=== PATIENT | male | born 2000 | race Caucasian/White ===

== ENCOUNTER 2024-12-19 02:48 | Emergency (ER) | payer MEDICAID ==
[~2024-12-19] VITALS: Ht 175.3 cm; Wt 73.0 kg
[2024-12-19 02:53] VITALS: O2SAT 99
[2024-12-19 04:44] LABS: BASOPHILS % 0.6 % (0.0-2.0); EOSINOPHILS % 6.4 % (0.0-5.0); HEMATOCRIT. 40.3 % (42.0-52.0); HEMOGLOBIN. 13.5 g/dL (14.0-18.0); LYMPHOCYTES % 17.5 % (20.0-50.0); MEAN PLATELET VOLUME 8.1 fl (7.4-10.4); MONOCYTES % 8.4 % (2.0-8.0); NEUTROPHILS % 67.1 % (40.0-76.0); PLATELET 295 x1000/uL (130-400); RED BLOOD CELL COUNT 4.94 mill/uL (4.7-6.1); RED CELL DISTRIBUTION WIDTH 14.0 % (11.6-14.6)
[2024-12-19 04:57] LABS: CREATININE 0.9 mg/dL (0.6-1.3); UREA NITROGEN BLOOD 15 mg/dL (9-23)
[2024-12-19 04:59] LABS: ASPARTATE AMINOTRANSFERASE 735 IU/L (<34); BILIRUBIN DIRECT 1.0 mg/dL (<=3.0)
[2024-12-19 05:00] LABS: BILIRUBIN TOTAL 1.9 mg/dL (0.1-1.0); PROTEIN TOTAL 7.9 g/dL (6.0-8.3)
[2024-12-19 05:34] LABS: CLARITY URINE CLEAR (CLEAR); COLOR URINE DARK YELLOW (YELLOW); GLUCOSE URINE NEGATIVE (NEGATIVE); KETONES URINE NEGATIVE (NEGATIVE); LEUKOCYTE ESTERASE URINE TRACE (NEGATIVE); NITRITE URINE NEGATIVE (NEGATIVE); OCCULT BLOOD URINE NEGATIVE (NEGATIVE); PH URINE 5.5 (4.5-8.0); PROTEIN URINE TRACE (NEGATIVE); SPECIFIC GRAVITY URINE 1.037 (1.005-1.030); UROBILINOGEN URINE 1.0 E.U./dL (0.2-1.0)
[2024-12-19 06:51] LABS: BACTERIA URINE NONE SEEN; RBC URINE 0-2 /hpf (0-2); SQUAMOUS EPITHELIAL CELL URINE FEW /lpf (RARE/1+); WBC URINE 0-2 /hpf (0-2)
[2024-12-19 06:59] VITALS: BP 125/87; PULSE 72; RESP 13; TEMP 36.5; O2SAT 99
== END 2024-12-19 07:04 | disposition home or self-care (01) ==
LOC: ER 02:48
DX: K80.20 Calculus of gallbladder without cholecystitis without obstruction (principal); J45.909 Unspecified asthma, uncomplicated
CPT/HCPCS: 80076; 80048; 81003; 83690; 85025; 36415; 76705; 99284; Z7610 ×2; A4606

== ENCOUNTER 2025-05-31 22:00 | Emergency (ER) | payer MEDICAID ==
[~2025-05-31] VITALS: Ht 177.8 cm; Wt 73.0 kg
[~2025-05-31 22:00] MED LIST: LEVO750T68 MT
[2025-05-31 22:04] VITALS: TEMP 97.5; O2SAT 98
[2025-05-31 23:05] LABS: BASOPHILS % 0.5 % (0.0-2.0); EOSINOPHILS % 4.8 % (0.0-5.0); HEMATOCRIT. 40.7 % (42.0-52.0); HEMOGLOBIN. 13.1 g/dL (14.0-18.0); LYMPHOCYTES % 9.2 % (20.0-50.0); MEAN PLATELET VOLUME 8.5 fl (7.4-10.4); MONOCYTES % 4.5 % (2.0-8.0); NEUTROPHILS % 81.0 % (40.0-76.0); PLATELET 300 x1000/uL (130-400); RED BLOOD CELL COUNT 5.02 mill/uL (4.7-6.1); RED CELL DISTRIBUTION WIDTH 14.7 % (11.6-14.6)
[2025-05-31 23:16] LABS: CREATININE 0.8 mg/dL (0.6-1.3); UREA NITROGEN BLOOD 11 mg/dL (9-23)
[2025-05-31 23:17] LABS: ETHANOL BLOOD < 10 mg/dL (<10); PROTEIN TOTAL 7.6 g/dL (6.0-8.3)
[2025-05-31 23:18] LABS: ASPARTATE AMINOTRANSFERASE 211 IU/L (<34); BILIRUBIN DIRECT 0.2 mg/dL (<=3.0)
[2025-05-31 23:19] LABS: BILIRUBIN TOTAL 0.5 mg/dL (0.1-1.0)
[2025-06-01] MEDS: SODIUM CHLORIDE 0.9% 1,000 ML IV ONE (00:18)
[2025-06-01] MEDS: FAMOTIDINE 20MG/2ML VIAL IV ONE (00:19)
[2025-06-01] MEDS: KETOROLAC 15MG/ML VIAL IV ONE (00:19)
[2025-06-01] MEDS: ONDANSETRON HCL 4MG/2ML INJ IV ONE (00:20)
[2025-06-01] MEDS ORDERED: IBUP-1455 MT (01:07)
[2025-06-01] MEDS ORDERED: FAMO-135 MT (01:07)
[2025-06-01 01:32] LABS: CLARITY URINE CLEAR (CLEAR); COLOR URINE YELLOW (YELLOW); GLUCOSE URINE NEGATIVE (NEGATIVE); KETONES URINE NEGATIVE (NEGATIVE); LEUKOCYTE ESTERASE URINE NEGATIVE (NEGATIVE); NITRITE URINE NEGATIVE (NEGATIVE); OCCULT BLOOD URINE NEGATIVE (NEGATIVE); PH URINE 5.5 (4.5-8.0); PROTEIN URINE NEGATIVE (NEGATIVE); SPECIFIC GRAVITY URINE 1.026 (1.005-1.030); UROBILINOGEN URINE 1.0 E.U./dL (0.2-1.0)
[2025-06-01 01:42] VITALS: BP 128/70; PULSE 93; RESP 18; O2SAT 98
[2025-06-01 01:46] LABS: *AMPHETAMINES SCREEN URINE NEGATIVE (NEGATIVE); *BARBITURATES SCREEN URINE NEGATIVE (NEGATIVE); *BENZODIAZEPINES SCREEN URINE NEGATIVE (NEGATIVE); *COCAINE SCREEN URINE NEGATIVE (NEGATIVE); METHADONE URINE SCREEN NEGATIVE (NEGATIVE)
[2025-06-01 01:47] LABS: CANNABINOID URINE SCREEN NEGATIVE (NEGATIVE); ECSTASY MDMA SCREEN URINE NEGATIVE (NEGATIVE); OPIATES URINE SCREEN NEGATIVE (NEGATIVE); PHENCYCLIDINE URINE SCREEN NEGATIVE (NEGATIVE)
== END 2025-06-01 01:49 | disposition home or self-care (01) ==
LOC: ER 22:00
DX: K80.62 Calculus of gallbladder and bile duct with acute cholecystitis without obstruction (principal); J45.909 Unspecified asthma, uncomplicated; Z79.899 Other long term (current) drug therapy
CPT/HCPCS: 80076; 80048; 80320; 83605; 83690; 83735; 85025; 36415; 76705; 99285; 80305; 81003; 96361; 96374; 96375; J7030; J1308; J1885; J2405; G0480